=== PATIENT | male | born 1960 | race Caucasian/White ===

== ENCOUNTER 2020-10-18 09:50 | Day surgery (SDC) | payer MEDICARE, OTHER ==
[~2020-10-18] VITALS: Ht 167.6 cm; Wt 104.5 kg
--- NOTE | ~2020-10-18 | OR ---
[facility] [address], [place] [address] Draft DATE OF OPERATION: 10/18/2020 SURGEON: Baylee Muñoz MD PREOPERATIVE DIAGNOSIS: Partial rotator cuff tear and SLAP tear of left shoulder. POSTOPERATIVE DIAGNOSIS: Partial rotator cuff tear and SLAP tear of left shoulder. PROCEDURE PERFORMED: Left shoulder arthroscopy with debridement, limited. DREDGEMASTER: None. ANESTHESIA: General. BLOOD LOSS: Minimal. BRIEF HISTORY: Hardeep is a 60-year-old gentleman with left shoulder pain and failed nonoperative treatment. Risks and benefits of operative treatment were discussed with him. He elected to proceed. DESCRIPTION OF PROCEDURE: Once consent was obtained, he was taken to the operating room after adequate anesthesia. He was placed on operating room table, all downside pressure points were well padded. He was placed in a beach chair position and the left shoulder was prepped and draped in a standard sterile fashion. Standard posterior portal was made and the scope was introduced in the shoulder. ARTHROSCOPIC FINDINGS: Glenohumeral surfaces were intact. Undersurface of the rotator cuff showed some very minor fraying of the insertion of supraspinatus less than 10% involvement. Biceps was intact. Biceps anchor was intact and the labrum showed a degenerative type 1 tear from just behind the biceps anteriorly. There was no significant erythema or redness around the SLAP tear. The subacromial space showed moderate bursitis with thickening and PATIENT NAME: HARDEEP QUIJANO OPERATIVE REPORT DATE OF : 60 REPORT #: [id number] PHYSICIAN: BAYLEE MUÑOZ MD PCP: ARLEEN COFFEY MD REPORT IS CONFIDENTIAL AND NOT TO BE RELEASED WITHOUT AUTHORIZATION [facility] [address], [place] [address] Draft induration throughout. The superior surface of rotator cuff was intact. The acromion was type 2. Standard anterior portal was made using an outside-in technique and the labral tear was debrided back to a stable rim. Again, the biceps were pulled down with a grasper and found to be intact in terms of its attachment to the superior glenoid. The undersurface of the rotator cuff was debrided. The scope was then withdrawn, placed in subacromial space and standard lateral portal was made using a combination of Mitek VAPR and the shaver. We were able to clear the bursitis and visualized the superior surface of the rotator cuff, which was completely intact. The scope was then withdrawn. Portals were closed with 3-0 nylon and dressed with silver impregnated dressings. He tolerated the procedure well. All sponge, needle, and instrument counts were correct. Baylee Muñoz MD BA/MODL /[id number] Copies: ~ PATIENT NAME: HARDEEP QUIJANO OPERATIVE REPORT DATE OF : 60 REPORT #: [id number] PHYSICIAN: BAYLEE MUÑOZ MD PCP: ARLEEN COFFEY MD REPORT IS CONFIDENTIAL AND NOT TO BE RELEASED WITHOUT AUTHORIZATION
[~2020-10-18 09:50] MED LIST: AMOXICILLIN875 MG PO; ASPIRIN EC81 MG PO; AUGMENTIN 875-1 EACH PO; BACTRIM DS TAB1 EACH PO; CELEBREX200 MG PO; CIPROFLOXACIN750 MG PO; CLINDAMYCIN HC300 MG PO; CULTURELLE1 EACH PO; DIFLUCAN200 MG PO; FERROUS SULFAT160 MG PO; FLEXERIL10 MG PO; GABAPENTIN100 MG PO; IRON325 M1 PO; LEVOTHYROXINE100 MC2 PO; MILK THISTLE500 MG PO; MULTI VITAMIN1 EACH PO; OMEPRAZOLE20 MG PO; OXYCODONE HCL5 MG PO; PAIN RELIEF650 MG PO; PERCOCET 7.5-31 EACH PO; PRINIVIL10 MG PO; SAW PALMETTO450 MG PO; SEPTRA DS TABL1 EACH PO; TAMSULOSIN HCL0.4 MG PO; ULTRAM50 MG PO; VALIUM5 MG PO; VITAMIN C500 M1 PO; WARFARIN SODIUM5 MG PO; ZANTAC
--- NOTE | 2020-10-18 10:50 | NUR ---
PT USES CALL LIGHT TO NOTIFY DS STAFF OF LEFT AXILLARY RED RASH "THAT WAS NOT THERE THIS MORNING." PT PROVIDED WARM WASH CLOTH TO WASH AREA WITH. PT STATES THAT HE "THINKS IT IS FROM THOSE WIPES I USED THIS MORNING- I REALLY SCRUBBED MY SURGERY ARM." VANCO CONT TO RUN VIA PUMP, PT DOES NOT THINK IT IS FROM IV ABX HE HAS "ALREADY BEEN ON IT FOR 6 WEEKS WITH NO PROBLEMS." PT UP TO BATHROOM WITH RN ASSIST, PT PUSHES IV POLE WITH PUMP INFUSING. PT WEARS PERSONAL SLIPPER ON RIGHT FOOT STATES, "I HAVE NO PADDING IN THIS FOOT AND ALWAYS WEAR A SHOE OR SLIPPER TO WALK." PT ENC TO USE CALL LIGHT ON WALL FOR ASSISTANCE, DOOR LOCKED BEHIND PT.
--- NOTE | 2020-10-18 11:11 | NUR ---
1111 VANCO INFUSION COMPLETE PT TOLERATED WELL.
[2020-10-18] MEDS ORDERED: CELEBREX200 MG PO (12:19)
[2020-10-18] MEDS ORDERED: HYDROCODON-ACE1 EA11 PO (12:20)
--- NOTE | 2020-10-18 12:28 | NUR ---
10/18/20 1228 Sheets,Latanya 1222 PT ARRIVED TO PACU ON 6L VIA MASK, SMALL AMOUNT OF SNORING NOTED. VSS AND RESP EVEN AND UNLABORED. 1225 HOB INCREASED SLIGHTLY.
--- NOTE | 2020-10-18 13:23 | NUR ---
1255 PT BACK TO ROOM FROM PACU AWKE AND ALERT DENIES PAIN. AT BEDSIDE. PT EATING CRACKERS AND DRINKING SODA TOLERATES WELL.
--- NOTE | 2020-10-18 15:57 | NUR ---
1415 PT UP TO BATHROOM WITH MINIMAL ASSIST. HE WAS ABLE TO URINATE. HIS LT ARM IS STILL NUMB FROM WRIST TO SHOULDER HE IS ABLE TO MOVE ALL FINGERS ON LT HAND WITH GOOD CMS. REPORTS HE IS READY TO GO HOME DISCHARGE INSTRUCTIONS GIVEN TO PT AN BOTH VOICED UNDERSTANDING.
== END 2020-10-18 14:43 | disposition home or self-care (01) ==
LOC: DS 09:50
PROVIDERS: ATTEND Specialist
PROC: 0RBK4ZZ Excision of Left Shoulder Joint, Percutaneous Endoscopic Approach (ICD-10-PCS; principal; 2020-10-18 10:45)
DX: S43.432A Superior glenoid labrum lesion of left shoulder, initial encounter (principal); M75.112 Incomplete rotator cuff tear or rupture of left shoulder, not specified as traumatic; M75.52 Bursitis of left shoulder; G89.18 Other acute postprocedural pain; M19.90 Unspecified osteoarthritis, unspecified site; K21.9 Gastro-esophageal reflux disease without esophagitis; I10 Essential (primary) hypertension; X58.XXXA Exposure to other specified factors, initial encounter; Z79.82 Long term (current) use of aspirin; Z98.1 Arthrodesis status; Z87.891 Personal history of nicotine dependence; Z91.048 Other nonmedicinal substance allergy status
CPT/HCPCS: 00450; 64415; 76942; J0330; J1100; J1885; J2001; J2250; J2704; J2795; J3370; J7060; J7121